=== PATIENT | male | born 1985 | race Caucasian/White ===

== ENCOUNTER 2019-09-27 11:46 | Emergency (ER) | payer OTHER ==
[~2019-09-27] VITALS: Ht 182.8 cm; Wt 113.6 kg
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
[2019-09-27 13:01] VITALS: BP 175/85
== END 2019-09-27 12:56 | disposition home or self-care (01) ==
LOC: ER FS 11:48
DX: S01.01XA Laceration without foreign body of scalp, initial encounter (principal); S16.1XXA Strain of muscle, fascia and tendon at neck level, initial encounter; Z88.0 Allergy status to penicillin; V87.8XXA Person injured in other specified noncollision transport accidents involving motor vehicle (traffic), initial encounter
CPT/HCPCS: 12002; 72125